=== PATIENT | male | born 1975 | race Caucasian/White ===

== ENCOUNTER 2024-01-13 09:47 | Day surgery (SDC) | payer OTHER, SELFPAY ==
[2024-01-13] VITALS (7 sets, daily range): BP systolic 124–145; BP diastolic 73–85; PULSE 65–99; RESP 12–16; TEMP 36.2–36.4; O2SAT 93–99; BMI 32.7
--- NOTE | 2024-01-13 | PATH_ITS ---
[facility] Accession Number: [id number] No. of containers..01 Tissue . 01 Material submitted: . scalp - SCALP LIPOMA . 01 Diagnosis: SCALP, EXCISION: Mature fibroadipose tissue, consistent with lipoma. PAULO 01/15/2024 1002 Local . 01 Electronically signed: . Dontrell Flaherty MD, Dermatopathologist NPI- [id number] . 01 Gross description: . Received in formalin with two patient identifiers and scalp lipoma, is a acevedo to yellow lobulated soft tissue fragment with an attached brown rough presumed fibrous tissue measuring 6.1 x 4.9 x 2.5 cm. Inked blue and serially sectioned to reveal acevedo to yellow smooth cut surface over the majority of the fatty tissue with one end yellow to brown smooth cut surface of the fatty tissue with the more fibrous area is occupying roughly 10% of the specimen with brown to acevedo smooth cut surface. [employer] sections submitted in cassettes A1-A3. ([id number]) /[facility] 01/14/2024 1038 Local . 01 Pathologist provided ICD-10: D17.9 . 01 CPT . 972522 Specimen Comment: A courtesy copy of this report has been sent to [phone] Performed at: [address] [address], [place], [place] [id number] MD Ruben Vazquez MD Phone: [phone]
--- NOTE | 2024-01-13 10:42 | PM.PREOP ---
Pre-operative Note COVID-19 COVID-19 status: Not tested Interval Note History & Physical reviewed/Exam performed by Physician: Yes Changes to H&P: No ASA Class (for procedural sedation): II
[2024-01-13] MEDS: LACTATED RINGERS 1,000 ML 42 ML IV ×2 (11:00→12:42)
--- NOTE | 2024-01-13 11:46 | SUR.OPER ---
Prone on padded OR bed, head in foam head support, gel chest rolls, gel pad under knees, pillow x2 under lower legs, toes free of pressure, arms secured on padded arm boards at <90 degrees abduction. Safety belt at thigh and across back.
[2024-01-13] MEDS: BUPIVACAINE 0.5% (PF) 30 ML, EPINEPHrine 0.15 MG INJ (11:56)
--- NOTE | 2024-01-13 12:35 | P.OP_ITS ---
Operative Date/Time/Diagnoses Date of procedure: 01/13/24 Time of procedure: 12:36 Pre-op diagnosis: Posterior scalp lipoma Post-op diagnosis: same Procedure & Clinicians Procedure: Excisional biopsy of posterior scalp lipoma Same procedure as scheduled: Yes Surgeon: Mike Villeda Rn Admissions: Clark Cole Anesthesia Type: General Operative Notes Procedure in detail: The patient was brought to the operating room and general endotracheal a nesthesia was induced on the gurney. He was then positioned in the prone position. Hair was removed around the lipoma. The scalp was prepped and draped in the usual fashion and a time-out was performed. We made a 7 cm transverse incision over the lipoma. We dissected down to the capsule of the lipoma. We dissected the lipoma off of the aponeurosis. Several bleeders were either cauterized or tied off with a 3-0 Vicryl stitch. We then irrigated the wound with sterile saline. Local was injected into the fascia and muscle at the deep portion of the wound. A few additional small bleeders were cauterized. We then closed the skin in layers using a running 3-0 Vicryl dermal stitch and a running 2-0 nylon closure. Dermabond was applied. EBL: 30 mL Specimen: Lipoma Post-operative Condition: stable Disposition: PACU
== END 2024-01-13 13:32 | disposition home or self-care (01) ==
PROVIDERS: Referring Provider Surgery; Visit Provider Surgery
PROC: (CPT 21012; principal; 2024-01-13 11:15)
DX: D17.0 Benign lipomatous neoplasm of skin and subcutaneous tissue of head, face and neck (principal)
CPT/HCPCS: 21012; J0171; J0330; J1100; J2250; J2405; J2704; J3010